=== PATIENT | male | born 1945 | race Caucasian/White ===

== ENCOUNTER 2022-09-13 12:09 | Outpatient (CLI) | payer MEDICARE, BC, SELFPAY ==
[2022-09-13 14:21] LABS: Basophils Absolute Auto 0.05 K/uL (0.00-0.30); Basophils Percent Auto 0.5 % (0.0-3.0); Eosinophils Absolute Auto 0.33 K/uL (0.00-0.50); Eosinophils Percent Auto 3.2 % (0.0-7.0); Hematocrit 49.2 % (37.0-53.0); Hemoglobin* 16.7 gm/dL (13.5-17.5); Immature Granulocytes Abs Auto 0.01 K/uL (0.00-0.30); Immature Granulocytes Pct Auto 0.1 %; Lymphocytes Absolute Auto 2.54 K/uL (0.90-2.90); Lymphocytes Percent Auto 24.8 % (20-44); Mean Corpuscular HGB Conc 34 gm/dL (32-36); Mean Corpuscular Hemoglobin 33 pg (26-34); Mean Corpuscular Volume 97 fL (80-100); Monocytes Percent Auto 11.3 % (0.0-11.0); Neutrophils Absolute Auto 6.15 K/uL (1.7-7.0); Neutrophils Percent Auto 60.1 % (42.0-72.0); Platelet Count* 229 K/uL (140-440); RDW Coefficient of Variation % 13.5 % (11.5-15.5); White Blood Count* 10.24 K/uL (4.50-11.00)
[2022-09-13 14:30] LABS: Slide Review Reflex No
[2022-09-13 15:23] LABS: Chloride* 104 mmol/L (96-114); Potassium* 4.7 mmol/L (3.6-5.1); Sodium* 139 mmol/L (135-149)
[2022-09-13 15:26] LABS: Blood Urea Nitrogen* 21 mg/dL (7-30); Carbon Dioxide* 27 mmol/L (20-32); Creatinine* 0.9 mg/dL (0.5-1.5); Estimated Glomerular Filt Rate 89 ml/min; Glucose* 107 mg/dL (60-115); Triglycerides* 97 mg/dL (40-149)
[2022-09-13 15:27] LABS: Calcium* 9.2 mg/dL (8.4-10.6); HDL Cholesterol* 47 mg/dL (>=40)
[2022-09-13 15:53] LABS: PSA Screen* 0.97 ng/mL (0.10-4.00)
[2022-09-14 18:59] LABS: Cholesterol* 122 mg/dL (90-199); LDL Cholesterol Calculated 56 mg/dL (<100)
== END 2022-09-13 12:10 | disposition home or self-care (01) ==
PROVIDERS: PCP Family Medicine; Visit Provider Family Medicine
DX: I10 Essential (primary) hypertension (principal); E78.5 Hyperlipidemia, unspecified; E55.9 Vitamin D deficiency, unspecified; M10.9 Gout, unspecified; Z12.5 Encounter for screening for malignant neoplasm of prostate
CPT/HCPCS: 80048; 80061; 84153; 85025

== ENCOUNTER 2023-01-21 23:25 | Emergency (ER) | payer MEDICARE, BC, SELFPAY ==
[2023-01-21 23:29] VITALS: BP 134/76; PULSE 64; RESP 20; TEMP 36.1; O2SAT 100
--- NOTE | 2023-01-21 23:52 | CRLHL7_ITS ---
For Patients: As a result of the Cures Act, medical imaging exams and procedure reports are released immediately into your electronic medical record. You may view this report before your referring provider. If you have questions, please contact your health care provider. INDICATION: Injury and pain. TECHNIQUE: Right femur 2 views. COMPARISON: 08/27/2020. FINDINGS: No acute fracture or dislocation. Right total knee arthroplasty. Vascular calcifications. IMPRESSION: No acute osseous abnormalities. Dictated by Kelvin Alfonso MD @ 01/22/2023 1:17:32 AM (Electronically Signed)
--- NOTE | 2023-01-21 23:53 | ED.GENADULT ---
HPI - General Adult General Chief complaint: Hip Injury/Pain Stated complaint: fall Time Seen by Provider: 01/21/23 23:45 History of Present Illness HPI narrative: This 77-year-old male comes in with an injury to his right hamstring. He fell and hyper extended that muscle group. He states that with difficulty and also with assistance he was able to get up and bear weight but his hamstring in the right leg is very painful in the more proximal region especially. He does not report any other injury. He did not hit his head or have loss of consciousness. He comes in by ambulance where he did receive 100 mcg of fentanyl. Related Data Home Medications Medication Instructions Recorded Confirmed aspirin 81 mg chewable tablet 81 mg PO QDAY 05/09/22 09/13/22 cholecalciferol (vitamin D3) 25 25 mcg PO QDAY 05/09/22 09/13/22 mcg (1,000 unit) capsule metoprolol tartrate 25 mg tablet 37.5 mg PO BID 05/09/22 09/13/22 multivitamin 1 tab PO QDAY 05/09/22 09/13/22 rosuvastatin 20 mg tablet 20 mg PO .QHS 05/09/22 09/13/22 Previous Rx's Medication Instructions Recorded allopurinol 300 mg tablet 300 mg PO QDAY #90 tabs 05/10/22 omeprazole 20 mg capsule,delayed 20 mg PO QDAY PRN gastric reflux 12/28/22 release #90 caps Allergies Allergy/AdvReac Type Severity Reaction Status Date / Time codeine Allergy Mild Nausea Verified 09/13/22 11:33 hydrocodone Allergy Mild Nausea Verified 09/13/22 11:33 Penicillins Allergy Mild Rash Verified 09/13/22 11:33 JOSE A Inhibitors AdvReac Mild Cough Verified 09/13/22 11:33 Review of Systems Status of ROS: Reports: 10 or more systems reviewed and unremarkable except as noted in History and below Narrative: Constitutional: No fevers, no weight gain or loss. Eyes: No discharge. No vision changes. HENT: No congestion, no sore throat, no ear pain. Cardiovascular: No chest pain, no palpitations. Respiratory: No shortness of breath, no wheezes, no cough. Gastrointestinal: No abdominal pain, no vomiting, no diarrhea. Genitourinary: No dysuria, no hematuria. Musculoskeletal: Right upper leg injury as described above. Patient reports chronic low back pain with right sided radicular symptoms radiating down the right leg. Skin: No rashes, no pruritis. Neurological: No dizziness, weakness, sensory change, speech change. Endo/Heme/Allergies: No bruising or bleeding. No polydipsia. Pysch: no suicidality, no anxiety, no insomnia. All other systems reviewed and are negative. [facility] Medical History (Updated 01/25/23 @ 21:28 by Wilver Melchor MD) Gout ?M10.9 - Gout, unspecified (ICD-10) Coronary artery disease ?I25.10 - Atherosclerotic heart disease of [place] coronary artery without angina pectoris (ICD-10) Hyperlipidemia ?E78.5 - Hyperlipidemia, unspecified (ICD-10) Melanoma ?C43.9 - Malignant melanoma of skin, unspecified (ICD-10) Health care directive on file ?Z78.9 - Other specified health status (ICD-10) GERD (gastroesophageal reflux disease) ?K21.9 - Gastro-esophageal reflux disease without esophagitis (ICD-10) Hypertension ?I10 - Essential (primary) hypertension (ICD-10) Vitamin D deficiency ?E55.9 - Vitamin D deficiency, unspecified (ICD-10) Macular degeneration ?H35.30 - Unspecified macular degeneration (ICD-10) Osteoarthritis, multiple sites ?M15.9 - Polyosteoarthritis, unspecified (ICD-10) Surgical History (Updated 05/09/22 @ 09:55 by Elis Law~PEDIATRIC DENTAL ASSISTANT) S/P coronary artery bypass graft x 3 ?Z95.1 - Presence of aortocoronary bypass graft (ICD-10) Hx of colonoscopy ?Z98.890 - Other specified postprocedural states (ICD-10) History of tonsillectomy and adenoidectomy ?Z90.89 - Acquired absence of other organs (ICD-10) Hx of repair of left rotator cuff ?Z98.890 - Other specified postprocedural states (ICD-10) Hx of spinal surgery ?Z98.890 - Other specified postprocedural states (ICD-10) History of total bilateral knee replacement ?Z96.653 - Presence of artificial knee joint, bilateral (ICD-10) Family History (Updated 05/09/22 @ 09:56 by Elis Law~PEDIATRIC DENTAL ASSISTANT) Mother Heart disease Father Heart disease Social History (Updated 09/18/22 @ 21:21 by Nick Madrid MD) Narrative: , 4 kids, non-smoker, rare EtOH, retired Smoking Status: Never smoker Exam Narrative: Exam Narrative: Constitutional: Well-developed, well-nourished, no acute distress. HEENT: Normocephalic, atraumatic. Neck: Normal range of motion. Nontender. Supple. Heart: Regular. No murmurs. Normal rate. Intact distal pulses. Lungs: Clear to auscultation. No chest discomfort. No wheezes, rhonchi, or rales. Abdomen: Normal bowel sounds. Nontender. No rebound tenderness. Genitalia: Deferred. Back: No midline tenderness. Normal range of motion. Extremities: The patient is able to raise his right leg a bit from the bed. He does not have any pain when log-rolling the leg. He reports pain in the right buttock and upper hamstring region. No pain when stressing his pelvis. Skin: Intact. No rash. Warm. No erythema or pallor. Neurologic: No altered sensation. No weakness. Alert and oriented. Psychiatric: No suicidality. No anxiety or depression. No insomnia. Nursing notes and vitals signs are reviewed. Const: Vital Signs, click to edit/add: Vital Signs - 24 hr 01/21/23 23:29 Temperature 97.0 F L Pulse Rate [Left P ulse Oximeter] 64 Respiratory Rate 20 Blood Pressure [Ri ght Upper Arm] 134/76 Pulse Oximetry 100 Oxygen Delivery Me thod Room Air Course Vital Signs Vital signs: Initial Vital Signs Temperature 97.0 F L 01/21/23 23:29 Temperature Source Temporal Artery Scan 01/21/23 23:29 Pulse Rate 64 01/21/23 23:29 Pulse Rhythm Regular 01/21/23 23:29 Respiratory Rate 20 01/21/23 23:29 Blood Pressure 134/76 01/21/23 23:29 Blood Pressure Mean 95 01/21/23 23:29 Blood Pressure Position Semi-Fowlers 01/21/23 23:29 Pulse Oximetry 100 01/21/23 23:29 Oxygen Delivery Method Room Air 01/21/23 23:29 Vital Signs Temperature 97.0 F L 01/21/23 23:29 Pulse Rate 64 05/13/23 23:29 Respiratory Rate 20 01/21/23 23:29 Blood Pressure 134/76 01/21/23 23:29 Pulse Oximetry 100 01/21/23 23:29 Oxygen Delivery Method Room Air 01/21/23 23:29 Temperature 97.0 F L 01/21/23 23:29 Pulse Rate 64 01/21/23 23:29 Respiratory Rate 20 01/21/23 23:29 Blood Pressure 134/76 01/21/23 23:29 Pulse Oximetry 100 01/21/23 23:29 Oxygen Delivery Method Room Air 01/21/23 23:29 Medical Decision Making MDM Narrative Medical decision making narrative: This patient comes in with injury to the flexor mechanism of his leg as described above. X-ray imaging shows no acute findings. The patient has a strain of his hamstring musculature but there is no sign of step-off or muscle or tendon rupture. The patient received crutches. He also received a prescription for Toradol. Discharge Plan Discharge Clinical Impression: Hamstring muscle strain Patient Disposition: Home, Self-Care Condition: Unchanged Additional Instructions: Use crutches as needed. Increase activity as tolerated. Follow up with clinic or orthopedic clinic as needed. Return if worsening. Prescriptions: No Action metoprolol tartrate 25 mg tablet 37.5 mg PO BID rosuvastatin 20 mg tablet 20 mg PO .QHS aspirin 81 mg tablet,chewable 81 mg PO QDAY cholecalciferol (vitamin D3) 25 mcg (1,000 unit) capsule 25 mcg PO QDAY multivitamin Tablet 1 tab PO QDAY allopurinol 300 mg tablet 300 mg PO QDAY Qty: 90 2RF omeprazole 20 mg capsule,delayed release(DR/EC) 20 mg PO QDAY PRN (Reason: gastric reflux) Qty: 90 3RF Follow Up/Referrals: Nick Madrid MD [Primary Care Provider] -
[2023-01-22] MEDS: HYDROmorphone 0.5 mg/0.5 ml inj IVP (00:59)
== END 2023-01-22 01:45 | disposition home or self-care (01) ==
LOC: ED 23:56
PROVIDERS: Emergency Provider Emergency Medicine Emergency Medical Services; PCP Family Medicine
DX: S76.811A Strain of other specified muscles, fascia and tendons at thigh level, right thigh, initial encounter (principal)
CPT/HCPCS: 73552; 96374; 99284; J1170

== ENCOUNTER 2023-12-21 10:34 | Outpatient (CLI) | payer MEDICARE, BC, SELFPAY | END 2023-12-21 10:35 | disposition home or self-care (01) | PROVIDERS: PCP Family Medicine; Visit Provider Family Medicine | DX: E78.5 Hyperlipidemia, unspecified (principal); I10 Essential (primary) hypertension; M10.9 Gout, unspecified | CPT/HCPCS: 80048; 80061; 84460; 84550 ==

== ENCOUNTER 2024-12-18 08:25 | Outpatient (CLI) | payer MEDICARE, BC, SELFPAY | END 2024-12-18 08:26 | disposition home or self-care (01) | PROVIDERS: PCP Family Medicine; Visit Provider Family Medicine | DX: I10 Essential (primary) hypertension (principal); E55.9 Vitamin D deficiency, unspecified; E78.2 Mixed hyperlipidemia; Z12.5 Encounter for screening for malignant neoplasm of prostate | CPT/HCPCS: 80048; 80061; 84460; 85025; G0103 ==